=== PATIENT | female | born 1965 | race Caucasian/White ===

== ENCOUNTER 2016-10-20 17:10 | Outpatient (CLI) ==
--- NOTE | 2016-10-20 23:13 | DI ---
EXAM: Right shoulder four views HISTORY: CT right shoulder pain COMPARISON: None FINDINGS: No fracture or dislocation. Mild osteoarthritis acromioclavicular joint with joint space narrowing. Glenohumeral joint appears normal. There is calcification about the greater tuberosity consistent with calcific tendonitis. IMPERSSION: 1. Mild osteoarthritis acromioclavicular joint. 2. Calcific tendonitis.
== END 2016-10-20 17:11 | disposition home or self-care (01) ==
LOC: RAD 17:10
PROVIDERS: ATTEND Family Medicine
DX: M25.511 Pain in right shoulder (principal)

== ENCOUNTER → 2016-12-16 | Outpatient (RCR) ==
--- NOTE | 2016-12-04 16:43 | RS.OPPTEV2 ---
Date of Note: 12/03/16 Visit #: 1 Date of Evaluation: 12/03/16 Payer Source: Insurance Surgery Performed?: Yes Procedure Performed: Open biopsy right proximal humerus,open acromioplasty,open distal clavicle resection, open rotator cuff repair right shoulder. Date of Procedure: 11/05/16 Treatment Diagnosis: Right shoulder pain, Right shoulder stiffness, s/p RTC repair History of Condition/Mechanism of Injury:: Patient reports right shoulder pain led her to have an MRI. States the MRI revealed a cyst in the shoulder joint. She thought she was just going in to have a biopsy of the cyst, but ended up having RTC repair. Prior Level of Function.....Patient was independent with: ADL's, Self Care, Work /Vocation, Caregiving, Ambulation/Mobility, Community Integration/Access Functional Limitations: Sleep, Self Care, ADL's, Reaching, Pushing, Pulling, Lifting, Carrying, Bending, Squatting, Community Access/Integration Current Subjective/complaints:: Patient reports right shoulder pain. States she wore a sling just the day of surgery. Reports she was told to take it off when she got home from the procedure. States she did use ice on the shoulder initially, but has not lately. States she does not know for sure what all the surgery involved, except for being told that she had bone spurs removed, the cyst removed, and a repair of the RTC. States she still has some tingling in the forearm and fingers of the right UE from the nerve block. She tries to keep a pillow under the right arm for support when sitting. She is right handed and states she is limited with all self care and ADL's at this time. She has been performing the pendulum exercise and wall walking per the doctor's instructions. Reports her kids have been helping her with getting dressed and driving her to appointments. Patient works at [employer] and does not currently have a return to work date. Treatment Side (optional): Right Medical History Medical History: Hypertension, Diabetes, Arthritis (right hip) Smoking Status: Current every day smoker Hx Home Medications: norco,trazadone,lisinopril Patient's Goals: Her goal is to regain full functional use of the right UE and get relief of pain. Pain Assessment - Pain Description Pain Location: right shoulder Pain Description: Aching Current Pain Intensity: 8/10 Worst Pain Intensity: 10/10 Functional Outcome Measure UE Functional Index: 21 (21/80=73.75% impairment) - G Codes & Severity Modifier G Codes & Modifier: NA Source of G Code score: NA Observation - Observation Inspection: right shoulder demonstrates a clean,well-healing incision line and scope site. Posture: Forward Head, Rounded Shoulders Handedness: Right Shoulder ROM: Left WFL's Shoulder Muscle Strength: Left WFL's - Right Shoulder ROM Comments: Passive-AAROM of the right shoulder: flexion to 95 degrees, abduction to 90 degrees. PROM into ER 15 degrees, IR 10 degrees. Full right elbow, wrist , and hand AROM. - Right Shoulder Strength Comments: Shoulder strength not tested at this time. Right elbow at least 4/5, wrist 4+/5. Retort Kiln Burner Strength Left Hand Retort Kiln Burner Strength: 42 lbs. Right Hand Retort Kiln Burner Strength: 32 lbs. Dynamometer Testing Position: 2nd Position Palpation Comments:: Patient reports tenderness throughout the right upper arm. Reports no tenderness over the incision. Sensation - Sensation Comments: Reports tingling in the right forearm and hand since having the nerve block. Interventions - Exercise/Activities/Manual Therapy Exercises/Activities: Patient received Passive to AAROM to the right shoulder in all directions. Advised to use ice to the right shoulder to help manage pain and swelling. Instructed in scapular retraction and to continue with pendulum and wall walking as instructed by her doctor. Manual Therapy: NA HOME EXERCISE PROGRAM: pendulum, wall walking, scapular retraction - Charges Total Direct Minutes: 50 mins Total Treatment Time: 50 mins Procedures billed for this date of service:: JUSTUS Stephens Assessment Assessment: Patient presents to therapy 4 weeks s/p right shoulder acromioplasty and RTC repair. She is right hand dominant. Exhibits limited ROM and strength in the right UE at this time. She is unable to perform all selfcare and ADL's due to limitation with the right UE. She is also unable to drive at this time. She demonstrates great potential to regain functional AROM of the right shoulder to return to her previous level of function. Patient Education: Education of diagnosis, Body/Joint mechanics, Home Exercise Program, Home Safety, Activity Modification, Education of Plan of Care Rehab Potential: Good Short Term Goals Goal #1: Patient in basic HEP and surgical precautions. Goal to be met by: 12/17/16 Goal #2: PROM of the right shoulder WFL's. Goal to be met by: 12/24/16 Goal #3: Right shoulder pain <4/10 at rest. Goal to be met by: 12/24/16 Formula Technician Goals Goal #1: Patient knows HEP and to continue ex's to maintain functional level at D/C. Goal to be met by: 01/17/17 Goal #2: Score on UE functional scale improved to 60/80. Goal to be met by: 01/17/17 Goal #3: Pt to use right UE for all selfcare and ADL's w/o difficulty or pain. Goal to be met by: 01/17/17 Goal #4: Pt able to return to work with minimal limitation. Goal to be met by: 01/17/17 Plan - Treatment to be Provided Procedures: Therapeutic Exercises, Therapeutic Activity, Patient Education Modalities: Electrical Stimulation, Ultrasound/Phonophoresis, Cryotherapy, Hot Packs - Treatment Plan Frequency: 3 X week Duration: 8 weeks ORDER # VISITS AND/OR THROUGH DATE: 01/17/17 - Treatment Code (1) Shoulder pain Qualifiers: Laterality: right Chronicity: acute Qualified Description: Acute pain of right shoulder Qualifier Code(s): (M25.511) Pain in right shoulder (2) Shoulder stiffness Qualifiers: Laterality: right Qualified Description: Stiffness of shoulder joint, right Qualifier Code(s): (M25.611) Stiffness of right shoulder, not elsewhere classified (3) Other specified postprocedural states Comments: Z98.894
--- NOTE | 2016-12-07 12:05 | RS.OPPTDN ---
Subjective Date of Note: 12/07/16 Visit #: 2 Date of Evaluation: 12/03/16 Payer Source: Insurance Treatment Diagnosis: Right shoulder pain, Right shoulder stiffness, s/p RTC repair Current Subjective/complaints:: Patient says she has had a burning pain to the ant shoulder yesterday. She says she cannot lay in her bed yet, but sleeping on the couch on the L side. She says she takes [place] and she is unable to tell if it is effective. Pain Assessment - Pain Description Pain Location: right shoulder Pain Description: Aching Current Pain Intensity: 8/10 - Treatment Modality: Electrical Stim Unattended Parameters/Method Applied: hivolt 4 small pads @ 95-100 pk volts x 20 mins crossed @ the R shoulder Patient Position: Sitting - Heat/Cryotherapy Treatment: Cryotherapy (R shoulder after therex) Interventions - Exercise/Activities/Manual Therapy Exercises/Activities: Patient receives PROM all dir of R shoulder and elbow in painfree range. AROM for the elbow and wrist, gripping exercises. Shoulder shrugs, scap adduction. Recommended ice and continued HEP. Total minutes of Exercise: 24 Manual Therapy: NA HOME EXERCISE PROGRAM: pendulum, wall walking, scapular retraction - Charges Total Direct Minutes: 24 Total Treatment Time: 44 Procedures billed for this date of service:: cp, estim (Un), ex2 Assessment: Patient able to gisela all therex today with [place]. She is not sleeping well at this point and having burning into the R anterior shoulder. She uses TENS at home. Pain relieved significantly with treatment today. Patient Education: Education of diagnosis, Body/Joint mechanics, Home Exercise Program, Home Safety, Activity Modification, Education of Plan of Care Patient demonstrates compliance with HEP?: Yes Short Term Goals Goal #1: Patient in basic HEP and surgical precautions. Goal to be met by: 12/17/16 Goal #2: PROM of the right shoulder WFL's. Goal to be met by: 12/24/16 Goal #3: Right shoulder pain <4/10 at rest. Goal to be met by: 12/24/16 Intermediate Goals Goal #1: Patient knows HEP and to continue ex's to maintain functional level at D/C. Goal to be met by: 01/17/17 Goal #2: Score on UE functional scale improved to 60/80. Goal to be met by: 01/17/17 Goal #3: Pt to use right UE for all selfcare and ADL's w/o difficulty or pain. Goal to be met by: 01/17/17 Goal #4: Pt able to return to work with minimal limitation. Goal to be met by: 01/17/17 Plan PLAN OF CARE EXPIRES ON:: 01/17/17 ORDER # VISITS AND/OR THROUGH DATE: 01/17/17 PLAN: Progress Exercises
--- NOTE | 2016-12-08 14:30 | RS.OPPTDN ---
Subjective Date of Note: 12/08/16 Visit #: 3 Date of Evaluation: 12/03/16 Payer Source: Insurance Treatment Diagnosis: Right shoulder pain, Right shoulder stiffness, s/p RTC repair Current Subjective/complaints:: Patient says she didn't sleep last night. States she did not get time to take her pain meds this morning. Pain Assessment - Pain Description Pain Location: right shoulder Pain Description: Aching Current Pain Intensity: 8/10 - Treatment Modality: Electrical Stim Unattended Parameters/Method Applied: hivolt 4 small pads @ 85-90 pk volts x 20 mins surrounding the R shoulder. Patient Position: Sitting - Heat/Cryotherapy Treatment: Cryotherapy Interventions - Exercise/Activities/Manual Therapy Exercises/Activities: Patient receives PROM all dir of R shoulder and elbow in painfree range. AROM for the elbow and wrist, gripping exercises with 3 and 5 # digiflexor 2/10. Shoulder shrugs, scap adduction. Continued with review of HEP and ice. Total minutes of Exercise: 26 Manual Therapy: NA HOME EXERCISE PROGRAM: pendulum, wall walking, scapular retraction - Charges Total Direct Minutes: 26 Total Treatment Time: 46 Procedures billed for this date of service:: cp, estim (un), ex2 Assessment: Patient with increased pain today related to no sleep, no pain meds prior to PT appt, and when she was able to fall asleep it was near time to leave for therapy session. She is able to gisela passive flexion to 85 degrees today with ABD to 70 degrees (in scapular plane). AROM of forearm and hand gisela well and with no grimacing as in other therex of the shoulder. Patient Education: Education of diagnosis, Body/Joint mechanics, Home Exercise Program, Home Safety, Activity Modification, Education of Plan of Care Patient demonstrates compliance with HEP?: Yes Short Term Goals Goal #1: Patient in basic HEP and surgical precautions. Goal to be met by: 12/17/16 Progress towards Goal:: Progressing Goal #2: PROM of the right shoulder WFL's. Goal to be met by: 12/24/16 Progress towards Goal:: Progressing Goal #3: Right shoulder pain <4/10 at rest. Goal to be met by: 12/24/16 Senior Care Goals Goal #1: Patient knows HEP and to continue ex's to maintain functional level at D/C. Goal to be met by: 01/17/17 Goal #2: Score on UE functional scale improved to 60/80. Goal to be met by: 01/17/17 Goal #3: Pt to use right UE for all selfcare and ADL's w/o difficulty or pain. Goal to be met by: 01/17/17 Goal #4: Pt able to return to work with minimal limitation. Goal to be met by: 01/17/17 Plan PLAN OF CARE EXPIRES ON:: 01/17/17 ORDER # VISITS AND/OR THROUGH DATE: 01/17/17 PLAN: Progress Exercises
--- NOTE | 2016-12-11 12:25 | RS.OPPTDN ---
Subjective Date of Note: 12/11/16 Visit #: 4 Date of Evaluation: 12/03/16 Payer Source: Insurance Treatment Diagnosis: Right shoulder pain, Right shoulder stiffness, s/p RTC repair Current Subjective/complaints:: Patient says she is hurting to the front of her shoulder. She says she is having more stiffness today she feels is related to the weather. She says she is using it according to her restrictions at home. Pain Assessment - Pain Description Pain Location: right shoulder, burning at the anterior shoulder Pain Description: Aching Current Pain Intensity: does not rate, but says it is irritated and stiff today - Treatment Modality: Electrical Stim Unattended Parameters/Method Applied: hivolt 2 small pads at the R UT and 2 large pads ant/ post shoulder @ 80 and 105 pk volts x 20 mins after therex Patient Position: Sitting Interventions - Exercise/Activities/Manual Therapy Exercises/Activities: Patient receives PROM all dir of R shoulder and elbow in painfree range. AROM for the elbow and wrist, gripping exercises with 3 and 5 # digiflexor 2/10. Shoulder shrugs, scap adduction. Began red tband for scap retraction x 10 in sitting. 1# wand for AAROM bilateral shoulder flexion to ~ 60 degrees. 1# PRE dumbell for wrist motions and elbow sup/pron. Continued with review of HEP and ice. Total minutes of Exercise: 26 Manual Therapy: NA HOME EXERCISE PROGRAM: pendulum, wall walking, scapular retraction - Charges Total Direct Minutes: 26 Total Treatment Time: 46 Procedures billed for this date of service:: ex2, estim (Un) Assessment: Patient with increased stiffness to the R shoulder with burning to the anterior shoulder. She appears to gisela all therex well with the exception of wand exercise limited to ~45 degrees first few attempts, then up to ~60 degrees. Patient Education: Education of diagnosis, Body/Joint mechanics, Home Exercise Program, Home Safety, Activity Modification, Education of Plan of Care Patient demonstrates compliance with HEP?: Yes Short Term Goals Goal #1: Patient in basic HEP and surgical precautions. Goal to be met by: 12/17/16 Progress towards Goal:: Progressing Goal #2: PROM of the right shoulder WFL's. Goal to be met by: 12/24/16 Progress towards Goal:: Progressing Goal #3: Right shoulder pain <4/10 at rest. Goal to be met by: 12/24/16 Boat Patcher Plastic Goals Goal #1: Patient knows HEP and to continue ex's to maintain functional level at D/C. Goal to be met by: 01/17/17 Goal #2: Score on UE functional scale improved to 60/80. Goal to be met by: 01/17/17 Goal #3: Pt to use right UE for all selfcare and ADL's w/o difficulty or pain. Goal to be met by: 01/17/17 Goal #4: Pt able to return to work with minimal limitation. Goal to be met by: 01/17/17 Plan PLAN OF CARE EXPIRES ON:: 01/17/17 ORDER # VISITS AND/OR THROUGH DATE: 01/17/17 PLAN: Progress Exercises
--- NOTE | 2016-12-15 16:49 | RS.OPPTDN ---
Subjective Date of Note: 12/15/16 Visit #: 5 Date of Evaluation: 12/03/16 Payer Source: Insurance Treatment Diagnosis: Right shoulder pain, Right shoulder stiffness, s/p RTC repair Current Subjective/complaints:: Patient presents emotional as she says her nephew just . She wanted to come to therapy to distract her and to help her shoulder rehab. She says she feels tight at the R scapula and neck and says she has been taking hot showers to help this. She says her motion seems to be improving slowly, but pain is still an issue. Pain Assessment - Pain Description Pain Location: right shoulder, burning at the anterior shoulder, burning at the R scapula Pain Description: Aching Current Pain Intensity: does not rate, but says it is irritated and stiff today - Treatment Modality: Electrical Stim Unattended Parameters/Method Applied: 4 large pads hivolt @ 105-135 pk volts x 20 mins after therex per request ant/post R shoulder and to scapula and R UT Patient Position: Sitting - Heat/Cryotherapy Treatment: Hot Pack Interventions - Exercise/Activities/Manual Therapy Exercises/Activities: Patient receives PROM all dir of R shoulder and elbow in painfree range. AROM for the elbow and wrist, gripping exercises with 3 and 5 # digiflexor 2/10. Shoulder shrugs, scap adduction. Continued with red tband for scap retraction x 10 in sitting. 1# wand for AAROM bilateral shoulder flexion to ~80 degrees. 1# PRE dumbell for wrist motions and elbow sup/pron. Continued with review of HEP and ice. Total minutes of Exercise: 30 Manual Therapy: NA HOME EXERCISE PROGRAM: pendulum, wall walking, scapular retraction - Charges Total Direct Minutes: 30 Total Treatment Time: 50 Procedures billed for this date of service:: hp, ex2, estim (un) Assessment: Patient's C/c tightness to the R shoulder and scapula. She is able to gisela all therex despite being emotional at her loss. She was able to lift wand for bilateral shoulder flexion with improved ease and more ROM than last session. She demo mod increase in muscle guarding throughout the R scap and UT with tenderness upon min to mod palpation. Patient Education: Education of diagnosis, Body/Joint mechanics, Home Exercise Program, Home Safety, Activity Modification, Education of Plan of Care Patient demonstrates compliance with HEP?: Yes Short Term Goals Goal #1: Patient in basic HEP and surgical precautions. Goal to be met by: 12/17/16 Progress towards Goal:: Progressing Goal #2: PROM of the right shoulder WFL's. Goal to be met by: 12/24/16 Progress towards Goal:: Progressing Goal #3: Right shoulder pain <4/10 at rest. Goal to be met by: 12/24/16 Gamemaster Goals Goal #1: Patient knows HEP and to continue ex's to maintain functional level at D/C. Goal to be met by: 01/17/17 Goal #2: Score on UE functional scale improved to 60/80. Goal to be met by: 01/17/17 Goal #3: Pt to use right UE for all selfcare and ADL's w/o difficulty or pain. Goal to be met by: 01/17/17 Goal #4: Pt able to return to work with minimal limitation. Goal to be met by: 01/17/17 Plan PLAN OF CARE EXPIRES ON:: 01/17/17 ORDER # VISITS AND/OR THROUGH DATE: 01/17/17 PLAN: Progress Exercises
--- NOTE | 2016-12-16 15:09 | RS.OPPTDN ---
Subjective Date of Note: 12/16/16 Visit #: 6 Date of Evaluation: 12/03/16 Payer Source: Insurance Treatment Diagnosis: Right shoulder pain, Right shoulder stiffness, s/p RTC repair Current Subjective/complaints:: Patient says she actually got sleep last night. Reports that she nearly got her hair into a ponytail and was able to fasten her bra. Pain Assessment - Pain Description Pain Location: right shoulder, burning at the anterior shoulder, burning at the R scapula, R UT Pain Description: Aching Current Pain Intensity: does not rate, but says better than yesterday - Treatment Modality: Electrical Stim Unattended Parameters/Method Applied: R UT/scap and ant/post shoulder hivolt 4 large pads @ 155 pk volts x 15 Patient Position: Sitting - Heat/Cryotherapy Treatment: Hot Pack (over the R shoulder and UT) Interventions - Exercise/Activities/Manual Therapy Exercises/Activities: Patient receives PROM all dir of R shoulder and elbow in painfree range. AROM for the elbow and wrist, gripping exercises with 3 and 5 # digiflexor 2/10. Shoulder shrugs, scap adduction. Continued with red tband for scap retraction x 10 in sitting. 1# wand for AAROM bilateral shoulder flexion to ~80 degrees. 1# PRE dumbell for wrist motions and elbow sup/pron. Total minutes of Exercise: 26 Manual Therapy: DTM and trigger work to the R UT and scar tissue massage to the ant incision x 16 mins HOME EXERCISE PROGRAM: pendulum, wall walking, scapular retraction - Charges Total Direct Minutes: 42 Total Treatment Time: 57 Procedures billed for this date of service:: hp, estim (un), MT, ex2 Assessment: Patient demo mod muscle guarding to the R UT and suprascapular region. Reduced tightness and pain following MT and modalities. She gisela increased passive flexion today, but abd is still difficult. Patient Education: Education of diagnosis, Body/Joint mechanics, Home Exercise Program, Home Safety, Activity Modification, Education of Plan of Care Patient demonstrates compliance with HEP?: Yes Short Term Goals Goal #1: Patient in basic HEP and surgical precautions. Goal to be met by: 12/17/16 Progress towards Goal:: Progressing Goal #2: PROM of the right shoulder WFL's. Goal to be met by: 12/24/16 Progress towards Goal:: Progressing Goal #3: Right shoulder pain <4/10 at rest. Goal to be met by: 12/24/16 Chcf Goals Goal #1: Patient knows HEP and to continue ex's to maintain functional level at D/C. Goal to be met by: 01/17/17 Goal #2: Score on UE functional scale improved to 60/80. Goal to be met by: 01/17/17 Goal #3: Pt to use right UE for all selfcare and ADL's w/o difficulty or pain. Goal to be met by: 01/17/17 Goal #4: Pt able to return to work with minimal limitation. Goal to be met by: 01/17/17 Plan PLAN OF CARE EXPIRES ON:: 01/17/17 ORDER # VISITS AND/OR THROUGH DATE: 01/17/17 PLAN: Progress Exercises
== END ==
PROVIDERS: ATTEND Orthopaedic Surgery
DX: M25.511 Pain in right shoulder (principal); M25.611 Stiffness of right shoulder, not elsewhere classified; Z98.890 Other specified postprocedural states

== ENCOUNTER → 2017-01-15 | Outpatient (RCR) ==
--- NOTE | 2016-12-18 12:05 | RS.OPPTDN ---
Subjective Date of Note: 12/18/16 Visit #: 7 Date of Evaluation: 12/03/16 Payer Source: Insurance Treatment Diagnosis: Right shoulder pain, Right shoulder stiffness, s/p RTC repair Current Subjective/complaints:: Patient says she was able to sleep all night Wednesday night (following her PT session). She says she wants her son to watch MT so that he may massage her R arm over the weekend. She says the MT helped tremendously and feels less tight now. Pain Assessment - Pain Description Pain Location: right shoulder, tightness to the R side of neck and scapula Current Pain Intensity: Does not rate, but admits significant improvement - Treatment Modality: Electrical Stim Unattended Parameters/Method Applied: 4 large pads x 15 mins after therex @ 140-155 pk volts to R UT and ant/post shoulder Patient Position: Sitting Interventions - Exercise/Activities/Manual Therapy Exercises/Activities: Patient receives PROM all dir of R shoulder and elbow in painfree range. AROM for the elbow and wrist, gripping exercises with 3 and 5 # digiflexor 2/10. Shoulder shrugs, scap adduction. Continued with red tband for scap retraction x 10 in sitting. 1# PRE dumbell for wrist motions and elbow sup/pron. Ended with shoulder pulleys x 3 mins and finger ladder flex/ abd. Total minutes of Exercise: 25 Manual Therapy: DTM and trigger work to the R UT and scar tissue massage to the ant incision x 16 mins HOME EXERCISE PROGRAM: pendulum, wall walking, scapular retraction - Objective Findings Observations,measurements,etc.: Explained and demo to patient's son MT as well as making shoulder pulleys for home. - Charges Total Direct Minutes: 41 Total Treatment Time: 56 Procedures billed for this date of service:: estim (un), MT, ex2 Assessment: Patient admitting improved sleep following her last session. She remains with mod muscle guarding throughout the R UT and shoulder, but less tender with DTM and trigger work. She demo improved passive shoulder flexion and abd to WFL and incision scar tissue flattening. Good active range with finger ladder for both flex/abd with only mild grimacing and improved pain voiced following session today. Patient Education: Education of diagnosis, Body/Joint mechanics, Home Exercise Program, Home Safety, Activity Modification, Education of Plan of Care Patient demonstrates compliance with HEP?: Yes Short Term Goals Goal #1: Patient in basic HEP and surgical precautions. Goal to be met by: 12/17/16 Progress towards Goal:: Progressing Goal #2: PROM of the right shoulder WFL's. Goal to be met by: 12/24/16 Progress towards Goal:: Progressing Goal #3: Right shoulder pain <4/10 at rest. Goal to be met by: 12/24/16 Progress towards Goal:: Progressing Undertaker Assistant Goals Goal #1: Patient knows HEP and to continue ex's to maintain functional level at D/C. Goal to be met by: 01/17/17 Goal #2: Score on UE functional scale improved to 60/80. Goal to be met by: 01/17/17 Goal #3: Pt to use right UE for all selfcare and ADL's w/o difficulty or pain. Goal to be met by: 01/17/17 Progress towards goal: Progressing Goal #4: Pt able to return to work with minimal limitation. Goal to be met by: 01/17/17 Plan PLAN OF CARE EXPIRES ON:: 01/17/17 ORDER # VISITS AND/OR THROUGH DATE: 01/17/17 PLAN: Progress Exercises
--- NOTE | 2016-12-21 14:07 | RS.OPPTDN ---
Subjective Date of Note: 12/21/16 Visit #: 8 Date of Evaluation: 12/03/16 Payer Source: Insurance Treatment Diagnosis: Right shoulder pain, Right shoulder stiffness, s/p RTC repair Current Subjective/complaints:: Patient says she was able to denise clothing today by herself. She says she still, however, has difficulty with sleep. Reports she has been performing HEP and is able to raise her arm higher than she has since surgery. States her son is preparing to install morgan system for October to work on at home. Pain Assessment - Pain Description Pain Location: right shoulder, tightness to the R side of neck and scapula Current Pain Intensity: Does not rate, but admits significant improvement - Treatment Modality: Electrical Stim Unattended Parameters/Method Applied: hivolt 4 large pads @ 70-125 pk volts to R UT and ant /post shoulder x 20 mins after therex Patient Position: Sitting Interventions - Exercise/Activities/Manual Therapy Exercises/Activities: Patient receives PROM all dir of R shoulder and elbow in painfree range. AROM for the elbow and wrist, gripping exercises with 5 and 7 # digiflexor 2/10. Began manual isometrics of shoulder flex/ext/IR/ER 2x5. Shoulder shrugs, scap adduction. Continued with red tband for scap retraction x 10 in sitting. 1# PRE dumbell for wrist motions and elbow sup/pron. 1# wand for bilateral shoulder flexion x 8. Ended with shoulder pulleys x 3 mins and finger ladder flex/abd. Total minutes of Exercise: 26 Manual Therapy: DTM and trigger work to the R UT and scar tissue massage to the ant incision x 16 mins HOME EXERCISE PROGRAM: pendulum, wall walking, scapular retraction - Charges Total Direct Minutes: 42 Total Treatment Time: 62 Procedures billed for this date of service:: estim (un), ex2, MT Assessment: Patient demo improved A and PROM in sitting as well as decreased muscle guarding to the R UT/shoulder. She demo reduced sensitivity to mod palpation during MT. Good toleration for isometrics as well. Patient Education: Education of diagnosis, Body/Joint mechanics, Home Exercise Program, Home Safety, Activity Modification, Education of Plan of Care Patient demonstrates compliance with HEP?: Yes Short Term Goals Goal #1: Patient in basic HEP and surgical precautions. Goal to be met by: 12/17/16 Progress towards Goal:: Progressing Goal #2: PROM of the right shoulder WFL's. Goal to be met by: 12/24/16 Progress towards Goal:: Progressing Goal #3: Right shoulder pain <4/10 at rest. 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 Goal to be met by: 01/17/17 Goal #2: Score on UE functional scale improved to 60/80. Goal to be met by: 01/17/17 Goal #3: Pt to use right UE for all selfcare and ADL's w/o difficulty or pain. Goal to be met by: 01/17/17 Progress towards goal: Progressing Goal #4: Pt able to return to work with minimal limitation. Goal to be met by: 01/17/17 Plan PLAN OF CARE EXPIRES ON:: 01/17/17 ORDER # VISITS AND/OR THROUGH DATE: 01/17/17 PLAN: Progress Exercises
--- NOTE | 2016-12-22 16:07 | RS.OPPTDN ---
Subjective Date of Note: 12/22/16 Visit #: 9 Date of Evaluation: 12/03/16 Payer Source: Insurance Treatment Diagnosis: Right shoulder pain, Right shoulder stiffness, s/p RTC repair Current Subjective/complaints:: Patient reports increased pain today. Padmini says she pulled her hair back into a clip and began hurting afterwards. She says she is mostly hurting at the R upper arm. She says tightness is better at the R side of her neck. Pain Assessment - Pain Description Pain Location: right shoulder, tightness to the R side of neck and scapula Current Pain Intensity: Does not rate, but admits significant improvement - Treatment Modality: Electrical Stim Unattended Parameters/Method Applied: 4 large pads hivolt @ 150 pk volts x 20 mins after therex at R ant/post shoulder, proximal biceps, and scapula Patient Position: Sitting Interventions - Exercise/Activities/Manual Therapy Exercises/Activities: Patient receives PROM all dir of R shoulder and elbow in painfree range. AROM for the elbow and wrist, gripping exercises with 5 and 7 # digiflexor 2/10. Continued with manual isometrics of shoulder flex/ext/IR/ER 2x5. Shoulder shrugs, scap adduction. Continued with red tband for scap retraction x 10 in sitting. Increased to 2# PRE dumbell for wrist motions and elbow sup/pron. 1# wand for bilateral shoulder flexion x 8. Active shoulder flexion x 3, AA shoulder flexion x 5. Total minutes of Exercise: 27 Manual Therapy: DTM and trigger work to the R UT and scar tissue massage to the ant incision x 14 mins HOME EXERCISE PROGRAM: pendulum, wall walking, scapular retraction - Charges Total Direct Minutes: 41 Total Treatment Time: 61 Procedures billed for this date of service:: estim (un), ex2, MT Assessment: Patient had elevated pain today she felt related to putting her hair up. She gisela all therex better and progressing well. She is able to actively flex the shoulder ~65 degrees, AA to 120~. Patient Education: Education of diagnosis, Body/Joint mechanics, Home Exercise Program, Home Safety, Activity Modification, Education of Plan of Care Patient demonstrates compliance with HEP?: Yes Short Term Goals Goal #1: Patient in basic HEP and surgical precautions. Goal to be met by: 12/17/16 Progress towards Goal:: Progressing Goal #2: PROM of the right shoulder WFL's. Goal to be met by: 12/24/16 Progress towards Goal:: Progressing Goal #3: Right shoulder pain <4/10 at rest. 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 Goal to be met by: 01/17/17 Goal #2: Score on UE functional scale improved to 60/80. Goal to be met by: 01/17/17 Goal #3: Pt to use right UE for all selfcare and ADL's w/o difficulty or pain. Goal to be met by: 01/17/17 Progress towards goal: Progressing Goal #4: Pt able to return to work with minimal limitation. Goal to be met by: 01/17/17 Plan PLAN OF CARE EXPIRES ON:: 01/17/17 ORDER # VISITS AND/OR THROUGH DATE: 01/17/17 PLAN: Progress Exercises
--- NOTE | 2016-12-25 13:32 | RS.OPPTDN ---
Subjective Date of Note: 12/25/16 Visit #: 10 Date of Evaluation: 12/03/16 Payer Source: Insurance Treatment Diagnosis: Right shoulder pain, Right shoulder stiffness, s/p RTC repair Current Subjective/complaints:: Patient says she overdid it yesterday. She says she walked downtown by her home and to the [employer] twice that day. She says pain increased so badly because of her arm hanging down for such a long time. She says she had taken a pain pill and used Biofreeze. Indicated pain at the R upper arm. She says she returns to the MD December 28. Pain Assessment - Pain Description Pain Location: right shoulder, tightness to the R side of neck and scapula Current Pain Intensity: elevated, does not rate - Treatment Modality: Electrical Stim Unattended Parameters/Method Applied: hivolt 4 large pads at R upper arm, ant/post shoulder and R suprascapula x 15 mins @ 155 pk volts AFTER therex Patient Position: Sitting - Heat/Cryotherapy Treatment: Cryotherapy (R shoulder) Interventions - Exercise/Activities/Manual Therapy Exercises/Activities: Patient receives PROM all dir of R shoulder and elbow in painfree range. AROM for the elbow and wrist, gripping exercises with 7 and 9# digiflexor 2/10. Continued with manual isometrics of shoulder flex/ext/IR/ER 2x5. Shoulder shrugs, scap adduction. Pendulum x 10 while in chair. Continued with 2# PRE dumbell for wrist motions and elbow sup/pron. 1# wand for bilateral shoulder flexion x 8. Active shoulder flexion x 3, AA shoulder flexion x 5. Total minutes of Exercise: 30 Manual Therapy: na HOME EXERCISE PROGRAM: pendulum, wall walking, scapular retraction - Charges Total Direct Minutes: 30 Total Treatment Time: 45 Procedures billed for this date of service:: estim (un), cp, ex2 Assessment: Patient experiencing elevated pain related to prolonged hanging and unsupported for most of the day yesterday. She had slight relief with taking a pain pill, but was unable to sleep last night with taking a sleep aid with the pain pill. She was able to gisela exercises with taking 2 rests. Soreness with isometrics for IR/ER. Patient Education: Education of diagnosis, Body/Joint mechanics, Home Exercise Program, Home Safety, Activity Modification, Education of Plan of Care Patient demonstrates compliance with HEP?: Yes Short Term Goals Goal #1: Patient in basic HEP and surgical precautions. Goal to be met by: 12/17/16 Progress towards Goal:: Progressing Goal #2: PROM of the right shoulder WFL's. Goal to be met by: 12/24/16 Progress towards Goal:: Progressing Goal #3: Right shoulder pain <4/10 at rest. 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 Goal to be met by: 01/17/17 Goal #2: Score on UE functional scale improved to 60/80. Goal to be met by: 01/17/17 Goal #3: Pt to use right UE for all selfcare and ADL's w/o difficulty or pain. Goal to be met by: 01/17/17 Progress towards goal: Progressing Goal #4: Pt able to return to work with minimal limitation. Goal to be met by: 01/17/17 Plan PLAN OF CARE EXPIRES ON:: 01/17/17 ORDER # VISITS AND/OR THROUGH DATE: 01/17/17 PLAN: Progress Exercises (Patient returns to MD 12/28/16)
--- NOTE | 2016-12-28 16:24 | RS.OPPTDN ---
Subjective Date of Note: 12/28/16 Visit #: 11 Date of Evaluation: 12/03/16 Payer Source: Insurance Treatment Diagnosis: Right shoulder pain, Right shoulder stiffness, s/p RTC repair Current Subjective/complaints:: Patient says she had her MD follow up today in which he ordered 4 more weeks. She says that she has a prescription for a muscle relaxer. Continues to report no sleep last night and moderate pain and tightness to the R upper arm. Pain Assessment - Pain Description Pain Location: right shoulder, tightness to the R side of neck and scapula Current Pain Intensity: elevated, does not rate - Treatment Modality: Electrical Stim Unattended Parameters/Method Applied: 4 large pads ant/post R shoulder and along upper arm @ 130 pk volts x 15 mins after therex Patient Position: Sitting - Heat/Cryotherapy Treatment: Cryotherapy Interventions - Exercise/Activities/Manual Therapy Exercises/Activities: Patient receives PROM all dir of R shoulder and elbow in painfree range, now in supine. AROM for the elbow and wrist, 2# with exception of biceps. Continued with manual isometrics of shoulder flex/ext/IR/ER 2x5. Shoulder shrugs, scap adduction. Pendulum x 10 while in chair. 1# wand for bilateral shoulder flexion and press ups x 10. Active shoulder flexion x 5, AA shoulder flexion x 10. Total minutes of Exercise: 35 Manual Therapy: na HOME EXERCISE PROGRAM: pendulum, wall walking, scapular retraction - Charges Total Direct Minutes: 35 Total Treatment Time: 50 Procedures billed for this date of service:: cp, estim (un), ex2 Assessment: Patient continues with inability to sleep due to pain/positioning. She had to take 3 pain pills 2 days ago to get to sleep. She now has a muscle relaxer that will hopefully help. She is able to gisela increased mobility in all motions while laying supine today. All other Rx's have been in sitting and more difficult. Patient Education: Education of diagnosis, Body/Joint mechanics, Home Exercise Program, Home Safety, Activity Modification, Education of Plan of Care Patient demonstrates compliance with HEP?: Yes Short Term Goals Goal #1: Patient in basic HEP and surgical precautions. Goal to be met by: 12/17/16 Progress towards Goal:: Progressing Goal #2: PROM of the right shoulder WFL's. Goal to be met by: 12/24/16 Progress towards Goal:: Progressing Goal #3: Right shoulder pain <4/10 at rest. 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 Goal to be met by: 01/25/17 Goal #2: Score on UE functional scale improved to 60/80. Goal to be met by: 01/25/17 Goal #3: Pt to use right UE for all selfcare and ADL's w/o difficulty or pain. Goal to be met by: 01/25/17 Progress towards goal: Progressing Goal #4: Pt able to return to work with minimal limitation. Goal to be met by: 01/25/17 Plan PLAN OF CARE EXPIRES ON:: 01/25/17 ORDER # VISITS AND/OR THROUGH DATE: 01/25/17 with new order x 4 more weeks dated 12/28/16 PLAN: Progress Exercises
--- NOTE | 2016-12-29 14:43 | RS.OPPTDN ---
Subjective Date of Note: 12/29/16 Visit #: 12 Date of Evaluation: 12/03/16 Payer Source: Insurance Treatment Diagnosis: Right shoulder pain, Right shoulder stiffness, s/p RTC repair Current Subjective/complaints:: Patient says she was able to sleep a full 4 hours last night after taking her muscle relaxer. She says she is very excited about being able to now sleep at night and not have the pain she did before obtaining this script. She says she continues to practice with lifting her arm and performing pulleys at home. Pain Assessment - Pain Description Pain Location: right shoulder, tightness to the R side of neck and scapula Pain Description: Less today Current Pain Intensity: elevated, does not rate Interventions - Exercise/Activities/Manual Therapy Exercises/Activities: Patient receives PROM all dir of R shoulder and elbow in painfree range, now in supine. 1# wand for bilateral shoulder flexion and press ups x 10. Active shoulder flexion x 5, AA shoulder flexion x 10. AROM for the elbow and wrist, 2# with including biceps. (in standing) Continued with manual isometrics of shoulder flex/ext/IR/ER 2x5. (Supine) Shoulder shrugs, scap adduction. Red tband for scap retraction in sitting. Finger ladder for flexion/abd. Active shoulder flexion and abd in standing x 5. 1# wand for AA flexion x 5. Total minutes of Exercise: 38 Manual Therapy: na HOME EXERCISE PROGRAM: pendulum, wall walking, scapular retraction - Objective Findings Observations,measurements,etc.: AA shoulder flexion to ~95 in standing. A shoulder flexion ~85. A shoulder abd ~80 - Charges Total Direct Minutes: 38 Total Treatment Time: 38 Procedures billed for this date of service:: ex3 Assessment: Patient demo improved gisela to ROM activities today allowing WFL for passive flexion/abd. Improvement seen to ~50% of norm with rotation (supine). Active motion coming along, but slow and hindered by pain. She is quite compliant with HEP and now sleeping better and in her bed last night due to muscle relaxer. Patient Education: Education of diagnosis, Body/Joint mechanics, Home Exercise Program, Home Safety, Activity Modification, Education of Plan of Care Patient demonstrates compliance with HEP?: Yes Short Term Goals Goal #1: Patient in basic HEP and surgical precautions. Goal to be met by: 12/17/16 Progress towards Goal:: Progressing Goal #2: PROM of the right shoulder WFL's. Goal to be met by: 12/24/16 Progress towards Goal:: Partially Met (with the exception of IR/ER) Goal #3: Right shoulder pain <4/10 at rest. 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 Goal to be met by: 01/25/17 Progress towards goal: Progressing Goal #2: Score on UE functional scale improved to 60/80. Goal to be met by: 01/25/17 Goal #3: Pt to use right UE for all selfcare and ADL's w/o difficulty or pain. Goal to be met by: 01/25/17 Progress towards goal: Progressing Goal #4: Pt able to return to work with minimal limitation. Goal to be met by: 01/25/17 Plan PLAN OF CARE EXPIRES ON:: 01/25/17 ORDER # VISITS AND/OR THROUGH DATE: 01/25/17 with new order x 4 more weeks dated 12/28/16 PLAN: Progress Exercises
--- NOTE | 2017-01-01 12:00 | RS.OPPTDN ---
Subjective Date of Note: 01/01/17 Visit #: 13 Date of Evaluation: 12/03/16 Payer Source: Insurance Treatment Diagnosis: Right shoulder pain, Right shoulder stiffness, s/p RTC repair Current Subjective/complaints:: Patient says she did well with not having ice/ estim. Says she was able to sleep in her bed and prepare a big dinner last night. She says she was able to part her hair and get it back in 2 ponytails. Pain Assessment - Pain Description Pain Location: anterior R shoulder Pain Description: Less today Interventions - Exercise/Activities/Manual Therapy Exercises/Activities: Patient receives PROM all dir of R shoulder and elbow in painfree range, in supine. 1# wand for bilateral shoulder flexion and 2# press ups 2 x 10. Active shoulder flexion x 5, AA shoulder flexion x 10. AROM for the elbow and wrist, 2# with including biceps. (in standing) Continued with manual isometrics of shoulder flex/ext/IR/ER 2x5. (Supine) Shoulder shrugs, scap adduction. Red tband for scap retraction in sitting. 1 # wand for AA flexion x 5. Active shoulder flexion x 5 in standing. Measurements taken. Total minutes of Exercise: 38 Manual Therapy: na HOME EXERCISE PROGRAM: pendulum, wall walking, scapular retraction - Objective Findings Observations,measurements,etc.: Active shoulder flexion in supine: 156 degrees , abd 150 degrees, IR WFL, ER 47 degrees. - Charges Total Direct Minutes: 38 Total Treatment Time: 38 Procedures billed for this date of service:: ex3 Assessment: Patient progressing with functional activities and pain lessening. Improved ROM actively and sleep also more productive. Patient Education: Education of diagnosis, Body/Joint mechanics, Home Exercise Program, Home Safety, Activity Modification, Education of Plan of Care Patient demonstrates compliance with HEP?: Yes Short Term Goals Goal #1: Patient in basic HEP and surgical precautions. Goal to be met by: 12/17/16 Progress towards Goal:: Progressing Goal #2: PROM of the right shoulder WFL's. Goal to be met by: 12/24/16 Progress towards Goal:: Partially Met (with the exception of IR/ER) Goal #3: Right shoulder pain <4/10 at rest. 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 Goal to be met by: 01/25/17 Progress towards goal: Progressing Goal #2: Score on UE functional scale improved to 60/80. Goal to be met by: 01/25/17 Goal #3: Pt to use right UE for all selfcare and ADL's w/o difficulty or pain. Goal to be met by: 01/25/17 Progress towards goal: Progressing Goal #4: Pt able to return to work with minimal limitation. Goal to be met by: 01/25/17 Plan PLAN OF CARE EXPIRES ON:: 01/25/17 ORDER # VISITS AND/OR THROUGH DATE: 01/25/17 with new order x 4 more weeks dated 12/28/16 PLAN: Progress Exercises
--- NOTE | 2017-01-04 15:38 | RS.OPPTDN ---
Subjective Date of Note: 01/04/17 Visit #: 14 Date of Evaluation: 12/03/16 Payer Source: Insurance Treatment Diagnosis: Right shoulder pain, Right shoulder stiffness, s/p RTC repair Current Subjective/complaints:: Patient says she had gotten up last night to go to the bathroom and fell onto the R shoulder. She reports she had heard a pop and had elevated pain. She took a muscle relaxer and pain pill and returned to bed. She has had slight reduction in pain since then. She comes to PT today without pain meds for ~10 hours. Pain Assessment - Pain Description Pain Location: just lateral to anterior incision Pain Description: elevated related to fall - Heat/Cryotherapy Treatment: Cryotherapy (20 mins to R shoulder after therex in sitting) Interventions - Exercise/Activities/Manual Therapy Exercises/Activities: Patient receives more gentler exercise today. PROM all dir of R shoulder and elbow in painfree range, in supine. 7 and 9# digiflexers. Attempted 1# wand for bilateral shoulder for pressups. Padmini only able to perform 3 before pain stops her. Ended with shoulder shrugs and pulleys. Total minutes of Exercise: 26 Manual Therapy: na HOME EXERCISE PROGRAM: pendulum, wall walking, scapular retraction - Charges Total Direct Minutes: 26 Total Treatment Time: 46 Procedures billed for this date of service:: ex2, cp Assessment: Patient had recent fall last night landing on her R shoulder and hearing a pop. She was encouraged to use ice often and to call her MD if pain worsens. Treatment was modified today due to her injury and was gisela fair. Active shoulder flexion and abd was reduced by almost half (~45-50 degrees respectively). Patient Education: Education of diagnosis, Body/Joint mechanics, Home Exercise Program, Home Safety, Activity Modification, Education of Plan of Care Short Term Goals Goal #1: Patient in basic HEP and surgical precautions. Goal to be met by: 12/17/16 Progress towards Goal:: Progressing Goal #2: PROM of the right shoulder WFL's. Goal to be met by: 12/24/16 Progress towards Goal:: Partially Met (with the exception of IR/ER) Goal #3: Right shoulder pain <4/10 at rest. Goal to be met by: 12/24/16 Progress towards Goal:: Progressing Fdc Goals Goal #1: Patient knows HEP and to continue ex's to maintain functional level at D/C. Goal to be met by: 01/25/17 Progress towards goal: Progressing Goal #2: Score on UE functional scale improved to 60/80. Goal to be met by: 01/25/17 Goal #3: Pt to use right UE for all selfcare and ADL's w/o difficulty or pain. Goal to be met by: 01/25/17 Progress towards goal: Progressing Goal #4: Pt able to return to work with minimal limitation. Goal to be met by: 01/25/17 Plan PLAN OF CARE EXPIRES ON:: 01/25/17 ORDER # VISITS AND/OR THROUGH DATE: 01/25/17 with new order x 4 more weeks dated 12/28/16 PLAN: Progress Exercises (Note is being sent to her MD. She requests notes to be faxed to her insurance.)
--- NOTE | 2017-01-05 13:54 | RS.OPPTDN ---
Subjective Date of Note: 01/05/17 Visit #: 15 Date of Evaluation: 12/03/16 Payer Source: Insurance Treatment Diagnosis: Right shoulder pain, Right shoulder stiffness, s/p RTC repair Current Subjective/complaints:: Patient says her pain is the same from yesterday and actually took a muscle relaxer prior to coming to therapy. She says she has been performing pendulum for pain too. Pain Assessment - Pain Description Pain Location: along the biceps and R posterior shoulder Pain Description: elevated related to fall Current Pain Intensity: elevated, does not rate - Heat/Cryotherapy Treatment: Cryotherapy (20 mins to tne R shoulder after therex) Interventions - Exercise/Activities/Manual Therapy Exercises/Activities: Patient receives more gentler exercise today. PROM all dir of R shoulder and elbow in painfree range, in supine. AA shoulder flexion in supine x 3. Shoulder shrugs and ended with pulleys. Total minutes of Exercise: 26 Manual Therapy: na HOME EXERCISE PROGRAM: pendulum, wall walking, scapular retraction - Charges Total Direct Minutes: 26 Total Treatment Time: 46 Procedures billed for this date of service:: cp, ex2 Assessment: Patient continues with mod to severe pain resulting from recent fall to the R shoulder. She was encouraged to contact her MD to see if he would like to see her sooner. She received more conservative therapy as a result. She did find relief with stretch during pulleys. Patient Education: Education of diagnosis, Body/Joint mechanics, Home Exercise Program, Home Safety, Activity Modification, Education of Plan of Care Patient demonstrates compliance with HEP?: Yes Short Term Goals Goal #1: Patient in basic HEP and surgical precautions. Goal to be met by: 12/17/16 Progress towards Goal:: Progressing Goal #2: PROM of the right shoulder WFL's. Goal to be met by: 12/24/16 Progress towards Goal:: Partially Met (with the exception of IR/ER) Goal #3: Right shoulder pain <4/10 at rest. 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 Goal to be met by: 01/25/17 Progress towards goal: Progressing Goal #2: Score on UE functional scale improved to 60/80. Goal to be met by: 01/25/17 Goal #3: Pt to use right UE for all selfcare and ADL's w/o difficulty or pain. Goal to be met by: 01/25/17 Progress towards goal: Progressing Goal #4: Pt able to return to work with minimal limitation. Goal to be met by: 01/25/17 Plan PLAN OF CARE EXPIRES ON:: 01/25/17 ORDER # VISITS AND/OR THROUGH DATE: 01/25/17 with new order x 4 more weeks dated 12/28/16 PLAN: Progress Exercises (Patient to contact her MD regarding fall)
--- NOTE | 2017-01-11 09:01 | RS.OPPTDN ---
Subjective Date of Note: 01/08/17 Visit #: 16 Date of Evaluation: 12/03/16 Payer Source: Insurance Treatment Diagnosis: Right shoulder pain, Right shoulder stiffness, s/p RTC repair Current Subjective/complaints:: Patient reports her shoulder pain has been less than the beginning of the week when she had fallen. She says she continues to "use" it at home to avoid loss of function. She states she has not used pain meds in 2 days, but continues to use muscle relaxer at bedtime. Pain Assessment - Pain Description Pain Location: along the biceps and R posterior shoulder Current Pain Intensity: mild at rest, increases with AROM and at end ranges passively - Heat/Cryotherapy Treatment: Cryotherapy (15 mins to the R shoulder after therex in sitting) Interventions - Exercise/Activities/Manual Therapy Exercises/Activities: Patient receives more gentler exercise today. PROM all dir of R shoulder and elbow in painfree range, in supine. AA shoulder flexion in supine 2x 5. Resumed 2# PRE's for wrist and elbow x 10. Sittin# wand for bilateral shoulder flexion and abd x 5. Shoulder shrugs, AROM and ended with pulleys and ball on the wall clockwise and counter x 10 each. Total minutes of Exercise: 30 Manual Therapy: na HOME EXERCISE PROGRAM: pendulum, wall walking, scapular retraction - Charges Total Direct Minutes: 32 Total Treatment Time: 47 Procedures billed for this date of service:: cp, ex2 Assessment: Patient's pain has been reduced from the earlier this week. She is able to gisela increased PROM and AROM. Patient taking less pain meds now and sleeping better with having muscle relaxer at bedtime. Patient Education: Education of diagnosis, Body/Joint mechanics, Home Exercise Program, Home Safety, Activity Modification, Education of Plan of Care Patient demonstrates compliance with HEP?: Yes Short Term Goals Goal #1: Patient in basic HEP and surgical precautions. Goal to be met by: 12/17/16 Progress towards Goal:: Progressing Goal #2: PROM of the right shoulder WFL's. Goal to be met by: 12/24/16 Progress towards Goal:: Partially Met (with the exception of IR/ER) Goal #3: Right shoulder pain <4/10 at rest. 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 Goal to be met by: 01/25/17 Progress towards goal: Progressing Goal #2: Score on UE functional scale improved to 60/80. Goal to be met by: 01/25/17 Goal #3: Pt to use right UE for all selfcare and ADL's w/o difficulty or pain. Goal to be met by: 01/25/17 Progress towards goal: Progressing Goal #4: Pt able to return to work with minimal limitation. Goal to be met by: 01/25/17 Plan PLAN OF CARE EXPIRES ON:: 01/25/17 ORDER # VISITS AND/OR THROUGH DATE: 01/25/17 with new order x 4 more weeks dated 12/28/16 PLAN: Progress Exercises
--- NOTE | 2017-01-11 11:25 | RS.OPPTDN ---
Subjective Date of Note: 01/11/17 Visit #: 17 Date of Evaluation: 12/03/16 Payer Source: Insurance Treatment Diagnosis: Right shoulder pain, Right shoulder stiffness, s/p RTC repair Current Subjective/complaints:: Patient says she slept in her bed for the first time over the weekend. She says she was awakened with elevated pain due to her sleep position. She says she continues not to use pain meds. Padmini reports improved motion with flexion and abd (active). Pain Assessment - Pain Description Pain Location: along the biceps and R posterior shoulder Pain Description: Aching Pain Description: mild, achey - Heat/Cryotherapy Treatment: Cryotherapy (15 mins after therex) Interventions - Exercise/Activities/Manual Therapy Exercises/Activities: Resumed therex in sitting per her request; PROM all dir of R shoulder and elbow in painfree range, in supine. Manual isometrics all dir of R shoulder 2/5. AA shoulder flexion in sitting 2x 5. Resumed 2# PRE's for wrist and elbow x 10. Sittin# wand for bilateral shoulder flexion and abd 2 x 5. Shoulder shrugs, AROM and ended with pulleys and ball on the wall clockwise and counter x 10 each. UBE x 5 mins for/retro. Total minutes of Exercise: 30 Manual Therapy: na HOME EXERCISE PROGRAM: pendulum, wall walking, scapular retraction - Charges Total Direct Minutes: 30 Total Treatment Time: 50 Procedures billed for this date of service:: cp, ex2 Assessment: Patient progressing with reduced R shoulder pain today and improved ROM/function as she was able to actively flex and abd as well as sleep longer and in her bed. She did have sensitivity to cold pack today. Patient Education: Education of diagnosis, Body/Joint mechanics, Home Exercise Program, Home Safety, Activity Modification, Education of Plan of Care Patient demonstrates compliance with HEP?: Yes Short Term Goals Goal #1: Patient in basic HEP and surgical precautions. Goal to be met by: 12/17/16 Progress towards Goal:: Progressing Goal #2: PROM of the right shoulder WFL's. Goal to be met by: 12/24/16 Progress towards Goal:: Partially Met (with the exception of IR/ER) Goal #3: Right shoulder pain <4/10 at rest. Goal to be met by: 12/24/16 Progress towards Goal:: Progressing Alf Goals Goal #1: Patient knows HEP and to continue ex's to maintain functional level at D/C. Goal to be met by: 01/25/17 Progress towards goal: Progressing Goal #2: Score on UE functional scale improved to 60/80. Goal to be met by: 01/25/17 Progress towards goal: Progressing Goal #3: Pt to use right UE for all selfcare and ADL's w/o difficulty or pain. Goal to be met by: 01/25/17 Progress towards goal: Progressing Goal #4: Pt able to return to work with minimal limitation. Goal to be met by: 01/25/17 Plan PLAN OF CARE EXPIRES ON:: 01/25/17 ORDER # VISITS AND/OR THROUGH DATE: 01/25/17 with new order x 4 more weeks dated 12/28/16 PLAN: Progress Exercises
--- NOTE | 2017-01-13 11:57 | RS.OPPTDN ---
Subjective Date of Note: 01/13/17 Visit #: 18 Date of Evaluation: 12/03/16 Payer Source: Insurance Treatment Diagnosis: Right shoulder pain, Right shoulder stiffness, s/p RTC repair Current Subjective/complaints:: Patient reports she was able to groom her hair better today and also remains without the need for pain medication. She admits to performing more household tasks like vacuuming at home. States she tried to exercise her shoulder in a friend's pool, but the water was cold and left her stiff and achey. Pain Assessment - Pain Description Pain Location: R ant shoulder Pain Description: Aching Pain Description: mild, achey Interventions - Exercise/Activities/Manual Therapy Exercises/Activities: Resumed therex in sitting per her request; Began with pulleys x 5 mins. PROM all dir of R shoulder and elbow in painfree range, in supine. Manual isometrics all dir of R shoulder 2/5. AA shoulder flexion in sitting 2x 5. 1# shoulder flexion (short range), shoulder abd, tricep curls, punches 2# PRE's for wrist and elbow x 10. Sitting: Increased to 2# wand for bilateral shoulder flexion and abd 2 x 5. Red tband for scap retraction x 10. Shoulder shrugs, AROM and ended with pulleys and ball on the wall clockwise and counter x 10 each. UBE x 5 mins for/retro. Total minutes of Exercise: 38 Manual Therapy: na HOME EXERCISE PROGRAM: pendulum, wall walking, scapular retraction - Charges Total Direct Minutes: 38 Total Treatment Time: 53 Procedures billed for this date of service:: cp, ex3 Assessment: Patient demo increased AROM and decreased pain with reduced need for pain medication. Patient Education: Education of diagnosis, Body/Joint mechanics, Home Exercise Program, Home Safety, Activity Modification, Education of Plan of Care Patient demonstrates compliance with HEP?: Yes Short Term Goals Goal #1: Patient in basic HEP and surgical precautions. Goal to be met by: 12/17/16 Progress towards Goal:: Progressing Goal #2: PROM of the right shoulder WFL's. Goal to be met by: 12/24/16 Progress towards Goal:: Partially Met (with the exception of IR/ER) Goal #3: Right shoulder pain <4/10 at rest. 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 Goal to be met by: 01/25/17 Progress towards goal: Progressing Goal #2: Score on UE functional scale improved to 60/80. Goal to be met by: 01/25/17 Progress towards goal: Progressing Goal #3: Pt to use right UE for all selfcare and ADL's w/o difficulty or pain. Goal to be met by: 01/25/17 Progress towards goal: Progressing Goal #4: Pt able to return to work with minimal limitation. Goal to be met by: 01/25/17 Plan PLAN OF CARE EXPIRES ON:: 01/25/17 ORDER # VISITS AND/OR THROUGH DATE: 01/25/17 with new order x 4 more weeks dated 12/28/16 PLAN: Progress Exercises
--- NOTE | 2017-01-15 14:13 | RS.OPPTDN ---
Subjective Date of Note: 01/15/17 Visit #: 19 Date of Evaluation: 12/03/16 Payer Source: Insurance Treatment Diagnosis: Right shoulder pain, Right shoulder stiffness, s/p RTC repair Current Subjective/complaints:: Patient reports "pulling" intermittently to the R posterior shoulder and scapula. She denies it being intolerable and has not taken pain meds since last week. She has been trying to exercise her shoulder in the position she will need to use it when she returns to work. She has started driving and doing so without any c/o's. Pain Assessment - Pain Description Pain Location: R post shoulder "pulling" Pain Description: Aching Pain Description: mild, achey Interventions - Exercise/Activities/Manual Therapy Exercises/Activities: Resumed therex in sitting per her request; Began with PROM/stretching all dir of R shoulder. Active shoulder flex/abd x 5. Manual isometrics all dir of R shoulder 2/5. AA shoulder flexion in sitting with 2# wand 2x 10. 1# shoulder flexion (short range), shoulder abd, tricep curls, punches 2# PRE's for wrist and elbow x 10. Progressed to green tband for scap retraction 2 x 10. Ended with scap stabilization with forearm on bed, wall push up x 5, ball on the wall counter and clockwise, UBE for/retro x 5 mins. Total minutes of Exercise: 38 Manual Therapy: na HOME EXERCISE PROGRAM: pendulum, wall walking, scapular retraction - Charges Total Direct Minutes: 38 Total Treatment Time: 38 Procedures billed for this date of service:: ex3 Assessment: Patient demo 100 degrees active flexion, abd to 95. Full PROM all directions. Improving with resisted therex and scap stabilization. Patient Education: Education of diagnosis, Body/Joint mechanics, Home Exercise Program, Home Safety, Activity Modification, Education of Plan of Care Patient demonstrates compliance with HEP?: Yes Short Term Goals Goal #1: Patient in basic HEP and surgical precautions. Goal to be met by: 12/17/16 Progress towards Goal:: Met Goal #2: PROM of the right shoulder WFL's. Goal to be met by: 12/24/16 Progress towards Goal:: Met Goal #3: Right shoulder pain <4/10 at rest. 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 Goal to be met by: 01/25/17 Progress towards goal: Progressing Goal #2: Score on UE functional scale improved to 60/80. Goal to be met by: 01/25/17 Progress towards goal: Progressing Goal #3: Pt to use right UE for all selfcare and ADL's w/o difficulty or pain. Goal to be met by: 01/25/17 Progress towards goal: Progressing Goal #4: Pt able to return to work with minimal limitation. Goal to be met by: 01/25/17 Plan PLAN OF CARE EXPIRES ON:: 01/25/17 ORDER # VISITS AND/OR THROUGH DATE: 01/25/17 with new order x 4 more weeks dated 12/28/16 PLAN: Progress Exercises
== END ==
PROVIDERS: ATTEND Orthopaedic Surgery
DX: M25.511 Pain in right shoulder (principal); Z98.890 Other specified postprocedural states

== ENCOUNTER 2017-02-12 13:00 | Outpatient (RCR) ==
--- NOTE | 2017-01-18 15:36 | RS.OPPTDN ---
Subjective Date of Note: 01/18/17 Visit #: 19 Date of Evaluation: 12/03/16 Payer Source: Insurance Treatment Diagnosis: Right shoulder pain, Right shoulder stiffness, s/p RTC repair Current Subjective/complaints:: Patient says she still has a "pulling" sensation to the R posterior shoulder. She says she does have more soreness to her shoulder related to driving to [place], [place] this weekend. Pain Assessment - Pain Description Pain Location: R post shoulder "pulling" Pain Description: mild, achey Current Pain Intensity: mild at rest, increases with AROM and at end ranges passively Interventions - Exercise/Activities/Manual Therapy Exercises/Activities: Began with UBE x 5 mins forward only. Resumed therex in sitting per her request; Began with PROM/stretching all dir of R shoulder. Active shoulder flex/abd x 5. Manual isometrics all dir of R shoulder 2/10. AA shoulder flexion in sitting with 2# wand 2x 10. 1# shoulder flexion (short range), shoulder abd, tricep curls, punches 2# PRE's for wrist and elbow motions ea x 10. Continued with green tband for scap retraction 2 x 10. Shelf reach activity from trunk to slight overhead using bilateral reach of 2# ball. Single arm reach with 1# x 5 each. Total minutes of Exercise: 38 Manual Therapy: na HOME EXERCISE PROGRAM: pendulum, wall walking, scapular retraction - Charges Total Direct Minutes: 38 Total Treatment Time: 38 Procedures billed for this date of service:: ex3 Assessment: Patient progressing with AROM and strengthening to the R UE, but remains with sore and pulling to the posterior shoulder. Patient Education: Education of diagnosis, Body/Joint mechanics, Home Exercise Program, Home Safety, Activity Modification, Education of Plan of Care Patient demonstrates compliance with HEP?: Yes Short Term Goals Goal #1: Patient in basic HEP and surgical precautions. Goal to be met by: 12/17/16 Progress towards Goal:: Met Goal #2: PROM of the right shoulder WFL's. Goal to be met by: 12/24/16 Progress towards Goal:: Met Goal #3: Right shoulder pain <4/10 at rest. Goal to be met by: 12/24/16 Progress towards Goal:: Progressing Mcfp Goals Goal #1: Patient knows HEP and to continue ex's to maintain functional level at D/C. Goal to be met by: 01/25/17 Progress towards goal: Progressing Goal #2: Score on UE functional scale improved to 60/80. Goal to be met by: 01/25/17 Progress towards goal: Progressing Goal #3: Pt to use right UE for all selfcare and ADL's w/o difficulty or pain. Goal to be met by: 01/25/17 Progress towards goal: Progressing Goal #4: Pt able to return to work with minimal limitation. Goal to be met by: 01/25/17 Plan PLAN OF CARE EXPIRES ON:: 01/25/17 ORDER # VISITS AND/OR THROUGH DATE: 01/25/17 with new order x 4 more weeks dated 12/28/16 PLAN: Progress Exercises
--- NOTE | 2017-01-20 13:10 | RS.CXNS ---
Date of scheduled appointment: 01/20/17 Type: Cancel Reason for Cancel/NS: sick
--- NOTE | 2017-01-22 14:49 | RS.OPPTDN ---
Subjective Date of Note: 01/22/17 Visit #: 20 Date of Evaluation: 12/03/16 Payer Source: Insurance Treatment Diagnosis: Right shoulder pain, Right shoulder stiffness, s/p RTC repair Current Subjective/complaints:: Patient reports increased pain and pulling to the R posterior shoulder. Says she continues to perform exercises as able at home, but remains with difficulty in many ADLs. She says yesterday was the first time she has had to take a pain pill in over 2 weeks. She is anxious to see her MD 01/25/17. Pain Assessment - Pain Description Pain Location: R post shoulder "pulling" Pain Description: Burning, Tightness, Acute Pain Description: elevated Current Pain Intensity: mild at rest, increases with AROM and at end ranges passively - Heat/Cryotherapy Treatment: Cryotherapy (20 mins over the R shoulder in sitting after therex) Interventions - Exercise/Activities/Manual Therapy Exercises/Activities: More conservative treatment today related to pain. Begins with pulleys x 5 mins for flexion and abd. PROM in sitting all dir. Manual isometrics all dir 2/10. Shoulder shrugs, scap retraction x 10. 1# wand for bilateral shoulder flexion and abd x 8. 2# for wrist and elbow motions x 12. Ended with pendulum and AROM for measurements. Total minutes of Exercise: 30 Manual Therapy: na HOME EXERCISE PROGRAM: pendulum, wall walking, scapular retraction - Charges Total Direct Minutes: 30 Total Treatment Time: 50 Procedures billed for this date of service:: cp, ex2 Assessment: Patient with increased R posterior shoulder pain and tightness. Pain has elevated mostly yesterday and has had "pulling" sensation since recent fall. Patient's AROM has been reduced and has been more painful since. She demo full PROM all dir, Active shoulder flexion in supine is ~140 degrees, but sitting/standing is only 80 degrees. ABD 85 degrees. Patient Education: Education of diagnosis, Body/Joint mechanics, Home Exercise Program, Home Safety, Activity Modification, Education of Plan of Care Patient demonstrates compliance with HEP?: Yes Short Term Goals Goal #1: Patient in basic HEP and surgical precautions. Goal to be met by: 12/17/16 Progress towards Goal:: Met Goal #2: PROM of the right shoulder WFL's. Goal to be met by: 12/24/16 Progress towards Goal:: Met Goal #3: Right shoulder pain <4/10 at rest. Goal to be met by: 12/24/16 Progress towards Goal:: Regressing (as of the past 2 days.) Custodial Goals Goal #1: Patient knows HEP and to continue ex's to maintain functional level at D/C. Goal to be met by: 01/25/17 Progress towards goal: Progressing Goal #2: Score on UE functional scale improved to 60/80. Goal to be met by: 01/25/17 Progress towards goal: Progressing Goal #3: Pt to use right UE for all selfcare and ADL's w/o difficulty or pain. Goal to be met by: 01/25/17 Progress towards goal: Progressing Goal #4: Pt able to return to work with minimal limitation. Goal to be met by: 01/25/17 Plan PLAN OF CARE EXPIRES ON:: 01/25/17 ORDER # VISITS AND/OR THROUGH DATE: 01/25/17 with new order x 4 more weeks dated 12/28/16 PLAN: Progress Exercises (Patient to see ortho 01/25/17. She is only approved until this date per ins./orders.)
--- NOTE | 2017-01-25 15:35 | RS.OPPTDN ---
Subjective Date of Note: 01/25/17 Visit #: 21 Date of Evaluation: 12/03/16 Payer Source: Insurance Treatment Diagnosis: Right shoulder pain, Right shoulder stiffness, s/p RTC repair Current Subjective/complaints:: Patient says her shoulder is less painful and moving better today. She says she has an order to continue PT x 4 more weeks. She did see ortho today and said she is not ready to return to work yet. Pain Assessment - Pain Description Pain Location: R post shoulder "pulling" Pain Description: Burning, Tightness, Acute Pain Description: elevated Current Pain Intensity: mild at rest, increases with AROM and at end ranges passively - Heat/Cryotherapy Treatment: Cryotherapy (20 mins to the R) Comments:: R shoulder after therex 20 mins Interventions - Exercise/Activities/Manual Therapy Exercises/Activities: Patient resumes routine of PROM/stretch to the R shoulder all directions. Manual isometrics all directions x 10. 1# wand for bilateral shoulder flexion. REd tband for pull backs 2x10, Wrist roll up bar x 2. 2# PRE 's for wrist and elbow, punches x 10. 1# shoulder flexion and abd short ranges with hangs x 10. Red tband pull downs at multigym 2x10, Shelf reach with 2# ball bilateral UE's trunk to overhead x 10, then 1# ball x 10 using the R UE. Total minutes of Exercise: 38 Manual Therapy: na HOME EXERCISE PROGRAM: pendulum, wall walking, scapular retraction - Charges Total Direct Minutes: 38 Total Treatment Time: 58 Procedures billed for this date of service:: cp, ex3 Assessment: Improved ROM today passively gisela more stretching into all motions WNL. AROM and AAROM with wand gisela to 100-105 degrees. Improved gisela and ability to perform single reach with 1# ball at shelf. Patient Education: Education of diagnosis, Body/Joint mechanics, Home Exercise Program, Home Safety, Activity Modification, Education of Plan of Care Patient demonstrates compliance with HEP?: Yes Short Term Goals Goal #1: Patient in basic HEP and surgical precautions. Goal to be met by: 12/17/16 Progress towards Goal:: Met Goal #2: PROM of the right shoulder WFL's. Goal to be met by: 12/24/16 Progress towards Goal:: Met Goal #3: Right shoulder pain <4/10 at rest. 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 Goal to be met by: 02/22/17 Progress towards goal: Progressing Goal #2: Score on UE functional scale improved to 60/80. Goal to be met by: 02/22/17 Progress towards goal: Progressing Goal #3: Pt to use right UE for all selfcare and ADL's w/o difficulty or pain. Goal to be met by: 02/22/17 Progress towards goal: Progressing Goal #4: Pt able to return to work with minimal limitation. Goal to be met by: 02/22/17 Plan PLAN OF CARE EXPIRES ON:: 02/22/17 ORDER # VISITS AND/OR THROUGH DATE: 02/22/17 with continuation order dated PLAN: Progress Exercises
--- NOTE | 2017-01-27 16:25 | RS.OPPTDN ---
Subjective Date of Note: 01/27/17 Visit #: 22 Date of Evaluation: 12/03/16 Payer Source: Insurance Treatment Diagnosis: Right shoulder pain, Right shoulder stiffness, s/p RTC repair Current Subjective/complaints:: Patient says her pain is more today than last session. She says she actually had to take another pain pill last night. She says she was able to sleep 6+ hours, but continues to feel tight at the R ant shoulder. Pain Assessment - Pain Description Pain Location: R post shoulder "pulling" and anterior shoulder tightness Pain Description: Burning, Tightness, Acute Pain Description: elevated Current Pain Intensity: mild at rest, increases with AROM and at end ranges passively Interventions - Exercise/Activities/Manual Therapy Exercises/Activities: Patient resumes routine of PROM/stretch to the R shoulder all directions. Manual isometrics all directions x 10. Wrist roll up bar x 2. 2# PRE's for wrist and elbow, punches x 10. 1# shoulder flexion and abd short ranges with hangs x 10. Shelf reach with 2# ball bilateral UE's trunk to overhead x 10, then 1# ball x 10 using the R UE. Total minutes of Exercise: 38 Manual Therapy: na HOME EXERCISE PROGRAM: pendulum, wall walking, scapular retraction - Charges Total Direct Minutes: 38 Total Treatment Time: 38 Procedures billed for this date of service:: ex3 Assessment: Patient expresses elevated pain today for unknown reasons. She has more difficulty performing activities today, but denied need for ice at end of session. Patient Education: Education of diagnosis, Body/Joint mechanics, Home Exercise Program, Home Safety, Activity Modification, Education of Plan of Care Patient demonstrates compliance with HEP?: Yes Short Term Goals Goal #1: Patient in basic HEP and surgical precautions. Goal to be met by: 12/17/16 Progress towards Goal:: Met Goal #2: PROM of the right shoulder WFL's. Goal to be met by: 12/24/16 Progress towards Goal:: Met Goal #3: Right shoulder pain <4/10 at rest. Goal to be met by: 12/24/16 Progress towards Goal:: Regressing (as of the past 2 days.) Chcf Goals Goal #1: Patient knows HEP and to continue ex's to maintain functional level at D/C. Goal to be met by: 02/22/17 Progress towards goal: Progressing Goal #2: Score on UE functional scale improved to 60/80. Goal to be met by: 02/22/17 Progress towards goal: Progressing Goal #3: Pt to use right UE for all selfcare and ADL's w/o difficulty or pain. Goal to be met by: 02/22/17 Progress towards goal: Progressing Goal #4: Pt able to return to work with minimal limitation. Goal to be met by: 02/22/17 Plan PLAN OF CARE EXPIRES ON:: 02/22/17 ORDER # VISITS AND/OR THROUGH DATE: 02/22/17 with continuation order dated PLAN: Progress Exercises
--- NOTE | 2017-01-29 15:10 | RS.OPPTDN ---
Subjective Date of Note: 01/29/17 Visit #: 23 Date of Evaluation: 12/03/16 Payer Source: Insurance Treatment Diagnosis: Right shoulder pain, Right shoulder stiffness, s/p RTC repair Current Subjective/complaints:: Patient c/o worsening pain today. She says she is having trouble with lifting her arm. She reports she went swimming yesterday , but pulled with her R arm to get out of the pool and her arm popped. Pain Assessment - Pain Description Pain Location: R post shoulder "pulling" and anterior shoulder tightness Pain Description: Burning, Tightness, Acute Pain Description: elevated - Heat/Cryotherapy Treatment: Cryotherapy (15 mins to the R shoulder after therex) Interventions - Exercise/Activities/Manual Therapy Exercises/Activities: Patient resumes routine of PROM/stretch to the R shoulder all directions. Manual isometrics all directions x 10. Wrist roll up bar x 2. 2# PRE's for elbow and wrist x 15. 1# shoulder flexion and abd short ranges with hangs x 10. Shelf reach with 2# ball bilateral UE's trunk to overhead x 10 , then 1# ball x 10 using the R UE. UBE x 4 mins for/retro. Ball on the wall clockwise and counter x 10 each. Total minutes of Exercise: 35 Manual Therapy: na HOME EXERCISE PROGRAM: pendulum, wall walking, scapular retraction - Charges Total Direct Minutes: 35 Total Treatment Time: 50 Procedures billed for this date of service:: cp, ex2 Assessment: Patient having elevated pain today. She had pulled with the R arm getting out of her friend's pool and heard popping. All AROM was more limited today and more difficult to perform. Patient Education: Education of diagnosis, Body/Joint mechanics, Home Exercise Program, Home Safety, Activity Modification, Education of Plan of Care Patient demonstrates compliance with HEP?: Yes Short Term Goals Goal #1: Patient in basic HEP and surgical precautions. Goal to be met by: 12/17/16 Progress towards Goal:: Met Goal #2: PROM of the right shoulder WFL's. Goal to be met by: 12/24/16 Progress towards Goal:: Met Goal #3: Right shoulder pain <4/10 at rest. 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 Goal to be met by: 02/22/17 Progress towards goal: Progressing Goal #2: Score on UE functional scale improved to 60/80. Goal to be met by: 02/22/17 Progress towards goal: Progressing Goal #3: Pt to use right UE for all selfcare and ADL's w/o difficulty or pain. Goal to be met by: 02/22/17 Progress towards goal: Progressing Goal #4: Pt able to return to work with minimal limitation. Goal to be met by: 02/22/17 Plan PLAN OF CARE EXPIRES ON:: 02/22/17 ORDER # VISITS AND/OR THROUGH DATE: 02/22/17 with continuation order dated PLAN: Progress Exercises (as able)
--- NOTE | 2017-02-01 12:04 | RS.OPPTDN ---
Subjective Date of Note: 02/01/17 Visit #: 24 Date of Evaluation: 12/03/16 Payer Source: Insurance Treatment Diagnosis: Right shoulder pain, Right shoulder stiffness, s/p RTC repair Current Subjective/complaints:: Patient says for the first time she was able to reach into her top cabinet using only the R UE. Pain Assessment - Pain Description Pain Location: R posterior shoulder occasional "pull". R shoulder pain reduced today and over the weekend Pain Description: Burning, Tightness, Acute Pain Description: less Current Pain Intensity: low currently Interventions - Exercise/Activities/Manual Therapy Exercises/Activities: Patient resumes routine of PROM/stretch to the R shoulder all directions. All WNL passively. Manual isometrics all directions x 10. Increased to 3# PRE's for elbow and wrist x 15. 3# for wand for bilateral Increased to 2# shoulder flexion and abd short ranges with hangs x 10. Shelf reach with 2# ball for bilateral UE's trunk to overhead raising by 20 degrees flexion x 10, 1# ball for R UE with raised top shelf. Ball on the wall clockwise and counter x 10 each. Total minutes of Exercise: 38 Manual Therapy: na HOME EXERCISE PROGRAM: pendulum, wall walking, scapular retraction - Charges Total Direct Minutes: 38 Total Treatment Time: 38 Procedures billed for this date of service:: ex3 Assessment: Patient demo increased active motion to the R UE especially when applying a weight (with shelf). She has reduced pain today and has been doing well with sleeping with muscle relaxer. She maintains increased muscle tone to the R UT. Patient Education: Education of diagnosis, Body/Joint mechanics, Home Exercise Program, Home Safety, Activity Modification, Education of Plan of Care Patient demonstrates compliance with HEP?: Yes Short Term Goals Goal #1: Patient in basic HEP and surgical precautions. Goal to be met by: 12/17/16 Progress towards Goal:: Met Goal #2: PROM of the right shoulder WFL's. Goal to be met by: 12/24/16 Progress towards Goal:: Met Goal #3: Right shoulder pain <4/10 at rest. Goal to be met by: 12/24/16 Progress towards Goal:: Regressing (as of the past 2 days.) Alf Goals Goal #1: Patient knows HEP and to continue ex's to maintain functional level at D/C. Goal to be met by: 02/22/17 Progress towards goal: Progressing Goal #2: Score on UE functional scale improved to 60/80. Goal to be met by: 02/22/17 Progress towards goal: Progressing Goal #3: Pt to use right UE for all selfcare and ADL's w/o difficulty or pain. Goal to be met by: 02/22/17 Progress towards goal: Progressing Goal #4: Pt able to return to work with minimal limitation. Goal to be met by: 02/22/17 Plan PLAN OF CARE EXPIRES ON:: 02/22/17 ORDER # VISITS AND/OR THROUGH DATE: 02/22/17 with continuation order dated PLAN: Progress Exercises
--- NOTE | 2017-02-03 11:42 | RS.OPPTDN ---
Subjective Date of Note: 02/03/17 Visit #: 25 Date of Evaluation: 12/03/16 Payer Source: Insurance Treatment Diagnosis: Right shoulder pain, Right shoulder stiffness, s/p RTC repair Current Subjective/complaints:: Patient c/o not getting much sleep and she is out of her muscle relaxers. She says her MD is on vacation and she may ask her PCP. Pain Assessment - Pain Description Pain Location: R posterior shoulder occasional "pull". R shoulder pain reduced today and over the weekend Pain Description: Burning, Tightness, Acute Pain Description: less Current Pain Intensity: low currently - Heat/Cryotherapy Treatment: Cryotherapy (15 mins R shoulder after therex) Interventions - Exercise/Activities/Manual Therapy Exercises/Activities: Patient progresses therex today. Begins with UBE x 5 mins for/retro. 3# PRE's for elbow and wrist x 15. 3# for wand for bilateral shoulder flexion and abd x 10. Increased to 2# shoulder flexion and abd short ranges with hangs x 10. Active shoulder abd x 8. Wall push ups x 10. Shelf reach with 3# for bilateral UE's trunk to overhead x 10, increased to 2# ball for R UE with raised top shelf. Ball on the wall clockwise and counter x 10 each. Ended with Green tband standing scap retraction 2x10. Total minutes of Exercise: 30 Manual Therapy: na HOME EXERCISE PROGRAM: pendulum, wall walking, scapular retraction - Charges Total Direct Minutes: 30 Total Treatment Time: 45 Procedures billed for this date of service:: ex2, cp Assessment: Patient gisela additional progressive exercises well and shows good control eccentrically with shelf reach and able to demo improved shoulder flexion actively to 120 degrees today. Patient Education: Education of diagnosis, Body/Joint mechanics, Home Exercise Program, Home Safety, Activity Modification, Education of Plan of Care Patient demonstrates compliance with HEP?: Yes Short Term Goals Goal #1: Patient in basic HEP and surgical precautions. Goal to be met by: 12/17/16 Progress towards Goal:: Met Goal #2: PROM of the right shoulder WFL's. Goal to be met by: 12/24/16 Progress towards Goal:: Met Goal #3: Right shoulder pain <4/10 at rest. 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 Goal to be met by: 02/22/17 Progress towards goal: Progressing Goal #2: Score on UE functional scale improved to 60/80. Goal to be met by: 02/22/17 Progress towards goal: Progressing Goal #3: Pt to use right UE for all selfcare and ADL's w/o difficulty or pain. Goal to be met by: 02/22/17 Progress towards goal: Progressing Goal #4: Pt able to return to work with minimal limitation. Goal to be met by: 02/22/17 Plan PLAN OF CARE EXPIRES ON:: 02/22/17 ORDER # VISITS AND/OR THROUGH DATE: 02/22/17 with continuation order dated PLAN: Progress Exercises
--- NOTE | 2017-02-05 14:03 | RS.OPPTDN ---
Subjective Date of Note: 02/05/17 Visit #: 26 Date of Evaluation: 12/03/16 Payer Source: Insurance Treatment Diagnosis: Right shoulder pain, Right shoulder stiffness, s/p RTC repair Current Subjective/complaints:: Patient says she continues to be able to raise her arm higher to groom her hair and dress. She reports pain is low, but feels tight today. Pain Assessment - Pain Description Pain Location: R posterior shoulder occasional "pull". R shoulder pain reduced today and over the weekend Pain Description: Burning, Tightness, Acute Pain Description: less Current Pain Intensity: low currently Interventions - Exercise/Activities/Manual Therapy Exercises/Activities: Patient progresses therex today. Begins with UBE x 5 mins for/retro. Stretching for the R shoulder all directions. 3# PRE's for elbow and wrist x 15. 3# for wand for bilateral shoulder flexion and abd x 10. Increased to 2# shoulder flexion and abd short ranges with hangs x 10. Active shoulder abd x 8. Wall push ups x 10. Shelf reach with 3# for bilateral UE's trunk to overhead x 10, increased to 2# ball for R UE with raised top shelf. Patient requested to try 3# for the R UE as well x 7. Ball on the wall with 1 1/2# wrist weight clockwise and counter x 10 each. Ended with Green tband standing scap retraction and pull downs 2x10. Total minutes of Exercise: 38 Manual Therapy: na HOME EXERCISE PROGRAM: pendulum, wall walking, scapular retraction - Charges Total Direct Minutes: 38 Total Treatment Time: 38 Procedures billed for this date of service:: ex3 Assessment: Continued to progress with all therex today. She demo continued improvement with active shoulder flexion and abd, but did experience more tightness passively with ER. Patient Education: Education of diagnosis, Body/Joint mechanics, Home Exercise Program, Home Safety, Activity Modification, Education of Plan of Care Patient demonstrates compliance with HEP?: Yes Short Term Goals Goal #1: Patient in basic HEP and surgical precautions. Goal to be met by: 12/17/16 Progress towards Goal:: Met Goal #2: PROM of the right shoulder WFL's. Goal to be met by: 12/24/16 Progress towards Goal:: Met Goal #3: Right shoulder pain <4/10 at rest. Goal to be met by: 12/24/16 Progress towards Goal:: Progressing Care Home Goals Goal #1: Patient knows HEP and to continue ex's to maintain functional level at D/C. Goal to be met by: 02/22/17 Progress towards goal: Progressing Goal #2: Score on UE functional scale improved to 60/80. Goal to be met by: 02/22/17 Progress towards goal: Progressing Goal #3: Pt to use right UE for all selfcare and ADL's w/o difficulty or pain. Goal to be met by: 02/22/17 Progress towards goal: Progressing Goal #4: Pt able to return to work with minimal limitation. Goal to be met by: 02/22/17 Plan PLAN OF CARE EXPIRES ON:: 02/22/17 ORDER # VISITS AND/OR THROUGH DATE: 02/22/17 with continuation order dated PLAN: Progress Exercises
--- NOTE | 2017-02-08 12:00 | RS.OPPTDN ---
Subjective Date of Note: 02/08/17 Visit #: 27 Date of Evaluation: 12/03/16 Payer Source: Insurance Treatment Diagnosis: Right shoulder pain, Right shoulder stiffness, s/p RTC repair Current Subjective/complaints:: Patient says she has had limited sleep and when she did awaken, she found that her arm was not the position she usually falls asleep and an "over flexed position." She says she heard a "pop" and felt it "went out of socket." She reports elevated pain today with less movement actively. Pain Assessment - Pain Description Pain Location: R anterior shoulder with recent pop and feeling of dislocation Pain Description: Burning, Tightness, Acute Pain Description: elevated - Heat/Cryotherapy Treatment: Cryotherapy (15 mins to the R shoulder after therex) Interventions - Exercise/Activities/Manual Therapy Exercises/Activities: Decreased therex today related to patient's pain level and sleepiness. Patient receives PROM all dir with limitation of pain at end ranges all directions. Manual isometrics 2x10 all dir. 2# wand for bilateral shoulder flexion x 9. 1# wand for shoulder abd x 8. 2# dumbell for elbow and wrist x 15. Finished with UBE x 5 mins for/retro. Total minutes of Exercise: 30 Manual Therapy: na HOME EXERCISE PROGRAM: pendulum, wall walking, scapular retraction - Charges Total Direct Minutes: 30 Total Treatment Time: 45 Procedures billed for this date of service:: cp, ex2 Assessment: Patient had felt recent pop and feeling instability to the R shoulder after awakening from poor sleep positioning. She had trouble gisela ROM to WFL today all dir actively and passively feeling pain and "pulling" at the anterior shoulder. Cold pack did relieve symptoms moderately today. Patient Education: Education of diagnosis, Body/Joint mechanics, Home Exercise Program, Home Safety, Activity Modification, Education of Plan of Care Patient demonstrates compliance with HEP?: Yes Short Term Goals Goal #1: Patient in basic HEP and surgical precautions. Goal to be met by: 12/17/16 Progress towards Goal:: Met Goal #2: PROM of the right shoulder WFL's. Goal to be met by: 12/24/16 Progress towards Goal:: Met Goal #3: Right shoulder pain <4/10 at rest. 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 Goal to be met by: 02/22/17 Progress towards goal: Progressing Goal #2: Score on UE functional scale improved to 60/80. Goal to be met by: 02/22/17 Progress towards goal: Progressing Goal #3: Pt to use right UE for all selfcare and ADL's w/o difficulty or pain. Goal to be met by: 02/22/17 Progress towards goal: Progressing Goal #4: Pt able to return to work with minimal limitation. Goal to be met by: 02/22/17 Plan PLAN OF CARE EXPIRES ON:: 02/22/17 ORDER # VISITS AND/OR THROUGH DATE: 02/22/17 with continuation order dated PLAN: Progress Exercises
--- NOTE | 2017-02-10 11:15 | RS.OPPTDN ---
Subjective Date of Note: 02/10/17 Visit #: 28 Date of Evaluation: 12/03/16 Payer Source: Insurance Treatment Diagnosis: Right shoulder pain, Right shoulder stiffness, s/p RTC repair Current Subjective/complaints:: Patient says her pain is not much better than last session. Patient states she took a pain pill yesterday and did swim in her friend's pool. She says it did not seem to make a difference with motion or pain. Pain Assessment - Pain Description Pain Location: R anterior shoulder Pain Description: Burning, Tightness, Acute Pain Description: elevated Interventions - Exercise/Activities/Manual Therapy Exercises/Activities: Patient receives PROM all dir all directions R shoulder. Manual isometrics 2x10 all dir. 2# wand for bilateral shoulder flexion x 10. 1 # wand for shoulder abd x 8. 3# dumbell for elbow and wrist x 15. 2# PRE's for shoulder flexion, pendulum, and "2 O'clock" position in sitting. Bouncing ball against the wall 2x10. Bouncing ball on the floor 2x10, throwing with R hand to OPERATIONS OFFICER [employer] x 2. Green tband pull downs 2x10, green tband punches 2x10, horizontal abd with green tband x 10. Shelf reach with 3# bilateral reach, 2# ball for the R and 3# using only the R shoulder x 10. Finished with UBE x 5 mins for/retro. Gave green band for home use. Total minutes of Exercise: 38 Manual Therapy: na HOME EXERCISE PROGRAM: pendulum, wall walking, scapular retraction - Charges Total Direct Minutes: 38 Total Treatment Time: 38 Procedures billed for this date of service:: ex3 Assessment: Patient maintains mod pain level to the R anterior shoulder, but is able to progress with therex much better today than last session. She demo improved active shoulder flexion functionally at the shelf reach activity (with weight) and alone to 122 and 155 passively in standing. Explained patient had 2 remaining visits according to approval on her insurance. Discussed progression of exercises so that she may be better to return to her work duties. Patient Education: Education of diagnosis, Body/Joint mechanics, Home Exercise Program, Home Safety, Activity Modification, Education of Plan of Care Patient demonstrates compliance with HEP?: Yes Short Term Goals Goal #1: Patient in basic HEP and surgical precautions. Goal to be met by: 12/17/16 Progress towards Goal:: Met Goal #2: PROM of the right shoulder WFL's. Goal to be met by: 12/24/16 Progress towards Goal:: Met Goal #3: Right shoulder pain <4/10 at rest. 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 Goal to be met by: 02/22/17 Progress towards goal: Progressing Goal #2: Score on UE functional scale improved to 60/80. Goal to be met by: 02/22/17 Progress towards goal: Progressing Goal #3: Pt to use right UE for all selfcare and ADL's w/o difficulty or pain. Goal to be met by: 02/22/17 Progress towards goal: Progressing Goal #4: Pt able to return to work with minimal limitation. Goal to be met by: 02/22/17 Plan PLAN OF CARE EXPIRES ON:: 02/22/17 ORDER # VISITS AND/OR THROUGH DATE: 02/22/17 with continuation order dated PLAN: Progress Exercises
--- NOTE | 2017-02-12 16:34 | RS.OPPTDN ---
Subjective Date of Note: 02/12/17 Visit #: 29 Date of Evaluation: 12/03/16 Payer Source: Insurance Treatment Diagnosis: Right shoulder pain, Right shoulder stiffness, s/p RTC repair Current Subjective/complaints:: Patient reports pain is about the same as last session. She says she could feel that exercises were progressed. Reports follow up with MD pedersen is ~02/23/17. Pain Assessment - Pain Description Pain Location: R anterior shoulder Pain Description: Burning, Tightness, Acute Pain Description: elevated Current Pain Intensity: moderate - Heat/Cryotherapy Treatment: Cryotherapy (15 mins to the R shoulder in sitting after therex) Interventions - Exercise/Activities/Manual Therapy Exercises/Activities: Patient receives PROM all dir all directions R shoulder. Manual isometrics 2x10 all dir. 2# wand for bilateral shoulder flexion x 10. 1 # wand for shoulder abd x 8. 3# dumbell for elbow and wrist x 15. Bouncing ball against the wall 2x10. Bouncing ball on the floor 2x10, throwing with R hand to MORTGAGE LOAN COORDINATOR 2 x 10. Green tband pull downs 2x10, green tband punches 2x10, horizontal abd with green tband x 10. Finished with UBE x 5 mins for/retro. Total minutes of Exercise: 32 Manual Therapy: na HOME EXERCISE PROGRAM: pendulum, wall walking, scapular retraction - Charges Total Direct Minutes: 32 Total Treatment Time: 47 Procedures billed for this date of service:: cp, ex2 Assessment: Patient demo improvement with functional throw with the R shoulder and increased shoulder flexion actively. ABD and ER still restricted and sore this date, but probably due to continuing with progressive exercises. Patient Education: Education of diagnosis, Body/Joint mechanics, Home Exercise Program, Home Safety, Activity Modification, Education of Plan of Care Patient demonstrates compliance with HEP?: Yes Short Term Goals Goal #1: Patient in basic HEP and surgical precautions. Goal to be met by: 12/17/16 Progress towards Goal:: Met Goal #2: PROM of the right shoulder WFL's. Goal to be met by: 12/24/16 Progress towards Goal:: Met Goal #3: Right shoulder pain <4/10 at rest. 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 Goal to be met by: 02/22/17 Progress towards goal: Progressing Goal #2: Score on UE functional scale improved to 60/80. Goal to be met by: 02/22/17 Progress towards goal: Progressing Goal #3: Pt to use right UE for all selfcare and ADL's w/o difficulty or pain. Goal to be met by: 02/22/17 Progress towards goal: Progressing Goal #4: Pt able to return to work with minimal limitation. Goal to be met by: 02/22/17 Plan PLAN OF CARE EXPIRES ON:: 02/22/17 ORDER # VISITS AND/OR THROUGH DATE: 02/22/17 with continuation order dated Comments:: Patient has one session left per order/insurance max. Patient to follow up with MD in about 1 week.
== END 2017-02-15 ==
PROVIDERS: ATTEND Orthopaedic Surgery
DX: M75.101 Unspecified rotator cuff tear or rupture of right shoulder, not specified as traumatic (principal); Z51.89 Encounter for other specified aftercare; Z98.890 Other specified postprocedural states

== ENCOUNTER 2017-02-17 10:15 | Outpatient (RCR) ==
--- NOTE | 2017-02-17 12:03 | RS.OPPTDN ---
Subjective Date of Note: 02/17/17 Visit #: 30 Date of Evaluation: 12/03/16 Payer Source: Insurance Treatment Diagnosis: Right shoulder pain, Right shoulder stiffness, s/p RTC repair Current Subjective/complaints:: Patient says she has been having pain to the front of her shoulder. She says she has been sleeping better because she has gotten a refill on her muscle relaxer. She says she is not able to lay on her R side. Reports improved strength and ROM. She says she hopes to gain further strength with tbands at home and wants to return to work. Pain Assessment - Pain Description Pain Location: R anterior shoulder Pain Description: Burning, Tightness Pain Description: elevated Current Pain Intensity: mild Interventions - Exercise/Activities/Manual Therapy Exercises/Activities: Patient receives PROM all dir all directions R shoulder. Manual isometrics 2x10 all dir. 2# wand for bilateral shoulder flexion x 10. 1 # wand for shoulder abd x 8. 3# dumbell for elbow and wrist x 15. Bouncing ball against the wall 2x10. Bouncing ball on the floor 2x10, throwing with R hand to C[employer] INSPECTOR 2 x 10. Green tband pull downs 2x10, blue resistand cord punches, shoulder flexion/ext 2x10 in standing, horizontal abd with green tband x 10. Finished with UBE x 5 mins for/retro. Shelf reach from trunk to overhead with 3 # bilaterally, 2# R UE 2x10. UE Functional Assessment and sagger maker testing. Total minutes of Exercise: 45 Manual Therapy: na HOME EXERCISE PROGRAM: pendulum, wall walking, scapular retraction - Objective Findings Observations,measurements,etc.: 57/80 or 29% impairment (Eval was 21/80 or 73%) - Charges Total Direct Minutes: 45 Total Treatment Time: 45 Procedures billed for this date of service:: ex3 Assessment: Patient demo improvement with ROM/strength, Functional Assessment, and gisela to increasing activity in dept/home. She is sleeping better with new muscle relaxer refill and able to perform ADL's with improved ease. She is to return to [facility] for follow up February 22. She has reached her max per insurance. Active flexion: 122 degrees, Passive to 145. Active ABD: 112, Passive to 140. Active ER/IR: WFL. Collar Fuser (L): 35# (R): 40# Patient Education: Education of diagnosis, Body/Joint mechanics, Home Exercise Program, Home Safety, Activity Modification, Education of Plan of Care Patient demonstrates compliance with HEP?: Yes (Advanced to blue tband and blue cord) Short Term Goals Goal #1: Patient in basic HEP and surgical precautions. Goal to be met by: 12/17/16 Progress towards Goal:: Met Goal #2: PROM of the right shoulder WFL's. Goal to be met by: 12/24/16 Progress towards Goal:: Met Goal #3: Right shoulder pain <4/10 at rest. Goal to be met by: 12/24/16 Progress towards Goal:: Met Business Director Goals Goal #1: Patient knows HEP and to continue ex's to maintain functional level at D/C. Goal to be met by: 02/22/17 Progress towards goal: Met Goal #2: Score on UE functional scale improved to 60/80. Goal to be met by: 02/22/17 Progress towards goal: Progressing Comments: 57/80 Goal #3: Pt to use right UE for all selfcare and ADL's w/o difficulty or pain. Goal to be met by: 02/22/17 Progress towards goal: Partially Met Comments: some discomfort, but able to manage most all ADLs Goal #4: Pt able to return to work with minimal limitation. Goal to be met by: 02/22/17 Comments: Patient wants to return to work, but has not yet been released Plan PLAN OF CARE EXPIRES ON:: 02/22/17 ORDER # VISITS AND/OR THROUGH DATE: 02/22/17 with continuation order dated PLAN: Plan for Discharge (Patient has reached max on insurance for the year and patient is aware)
--- NOTE | 2017-03-02 15:11 | RS.QUICKDC ---
Discharge from PT Date of Discharge: 03/02/17 Number of Visits: 30 Reason for Discharge: Patient has completed original orders, plus continuation for R RTC repair. She has admitted improved pain level, sleep (with refill of muscle relaxer), and motion. She is anticipating returning to work after her next follow up appt. 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 She has an advanced HEP with tbands/cords and was encouraged to continue working on mobility as well. Max approval met per insurance allowance for the year. See daily notes for specific treatment.
== END 2017-03-18 ==
PROVIDERS: ATTEND Orthopaedic Surgery
DX: Z51.89 Encounter for other specified aftercare (principal); Z98.890 Other specified postprocedural states; M25.511 Pain in right shoulder; M25.611 Stiffness of right shoulder, not elsewhere classified